=== PATIENT | female | born 1970 | race Caucasian/White ===

== ENCOUNTER 2024-03-21 08:29 | Outpatient (CLI) | payer BC, SELFPAY ==
--- NOTE | 2024-03-21 08:40 | MM_ITS ---
WS: [id number] BILATERAL SCREENING DIGITAL TOMOSYNTHESIS MAMMOGRAM WITH CAD HISTORY: SCREENING COMPARISON: 09/03/2021, 06/21/2018 Bilateral CC and MLO views with tomosynthesis and synthetic mammography submitted. Computer aided det ection analyzed. Breast composition: There are scattered areas of fibroglandular density. No suspicious masses, microc alcifications or architectural distortion. MM/[place] [id number] IMPRESSION: BI-RADS: 1-Negative FOLLOW UP: 1 Year Follow-up
== END 2024-03-21 08:30 | disposition home or self-care (01) ==
LOC: RAD 08:31
PROVIDERS: Family Provider General Practice; Visit Provider Nurse Practitioner Family
DX: Z12.31 Encounter for screening mammogram for malignant neoplasm of breast (principal); R92.323 Mammographic fibroglandular density, bilateral breasts
CPT/HCPCS: 77063; 77067